=== PATIENT | male | born 1950 | race Two or more races ===

== ENCOUNTER 2023-06-13 15:30 | Emergency (ER) | payer MEDICARE, OTHER ==
[~2023-06-13] VITALS: Ht 185.4 cm; Wt 154.2 kg
[2023-06-13] MEDS: PROPOFOL 100 ML IV ONE (16:07)
[2023-06-13] MEDS: PIPERACILLIN-TAZO 4.5GM 100 ML IV ONE (17:00)
[2023-06-13] MEDS: PROPOFOL 100 ML IV SCH (17:00)
[2023-06-13 17:11] LABS: Basophils # (auto) 0 10 ^3/uL (0-0.2); Basophils % (auto) 0.1 % (0.0-2.0); Eosinophils # (auto) 0 10 ^3/uL (0-0.8); Eosinophils % (auto) 0.1 % (0.0-7.0); Hematocrit 39.2 % (41.0-53.0); Hemoglobin 12.8 g/dL (13.5-17.5); Lymphocytes # (auto) 0.9 10 ^3/uL (0.4-5.4); Lymphocytes % (auto) 6.4 % (10.0-50.0); Mean Corpuscular Hemoglobin 28.3 pg (28.0-32.0); Mean Corpuscular Hgb Conc. 32.7 g/dL (32.0-36.0); Mean Corpuscular Volume 86.6 fL (80.0-100.0); Monocytes # (auto) 1.5 10 ^3/uL (0-1.3); Monocytes % (auto) 10.2 % (0.0-12.0); Neutrophils # (auto) 12.1 10 ^3/uL (1.6-8.6); Neutrophils % (auto) 83.2 % (37.0-80.0); Nucleated Red Blood Cells % 0.1 %; Red Blood Cells 4.53 10^6/uL (4.5-5.90); Red Cell Distribution Width 15.8 % (11.8-14.3); White Blood Cell 14.6 10^3/uL (4.4-10.8)
[2023-06-13 17:22] LABS: Chloride 104 mmol/L (98-107); Potassium 4.2 mmol/L (3.5-5.1); Sodium 134 mmol/L (136-145)
[2023-06-13 17:23] LABS: Anion Gap 7 (5-15); Calcium 8.4 mg/dL (8.5-10.1); Carbon Dioxide 23 mmol/L (20-30)
[2023-06-13 17:25] LABS: INR 1.04 (0.9-1.15); Prothrombin Time 10.9 sec (9.3-11.8)
[2023-06-13 17:28] LABS: BUN/Creatinine Ratio 10.5 (10.0-20.0); Blood Urea Nitrogen 9 mg/dL (9-23); Glucose 138 mg/dL (74-106)
[2023-06-13 17:48] VITALS: O2SAT 50
[2023-06-13 19:30] VITALS: PULSE 91; RESP 24; O2SAT 95
[2023-06-13] MEDS: fentaNYL Drip 2500mCg/250mlNS 250 ML IV SCH (19:30)
[2023-06-13] MEDS: CLINDAMYCIN 900MG IV 50 ML IV ONE (19:45)
[2023-06-13] MEDS: fentaNYL Drip 2500mCg/250mlNS 250 ML IV ONE (19:47)
[2023-06-13 20:29] VITALS: BP 131/65; PULSE 87; RESP 16; TEMP 100.2; O2SAT 95
== END 2023-06-13 21:09 | disposition short-term general hospital (02) ==
LOC: EDBD 15:30 → ER 15:30
DX: J96.90 Respiratory failure, unspecified, unspecified whether with hypoxia or hypercapnia (principal); K12.2 Cellulitis and abscess of mouth; R41.82 Altered mental status, unspecified
CPT/HCPCS: 36415; 71045; 80048; 85025; 85610; 96365; 96367; 99291; J2543; J2704; J3490